=== PATIENT | female | born 1995 | race African-American/Black ===

== ENCOUNTER 2017-02-28 06:56 | Emergency (ER) | payer MEDICAID ==
[~2017-02-28] VITALS: Ht 157.5 cm; Wt 43.1 kg
[2017-02-28 07:25] VITALS: BP 130/85
[2017-02-28 08:00] LABS: Basophils # (auto) 0 uL; Basophils % (auto) 0.3 % (0.0-2.0); Eosinophils # (auto) 0 uL; Hematocrit 39.8 % (36.0-46.0); Hemoglobin 13.2 g/dL (12.2-16.2); Lymphocytes # (auto) 1.4 uL; Lymphocytes % (auto) 14.2 % (10.0-50.0); Mean Corpuscular Hemoglobin 27.7 pg (28.0-32.0); Mean Corpuscular Hgb Conc. 33.2 g/dL (32.0-36.0); Mean Corpuscular Volume 83.3 fL (80.0-100.0); Mean Platelet Volume 8.5 fL (7.4-10.4); Monocytes # (auto) 0.6 uL; Monocytes % (auto) 5.7 % (0.0-12.0); Neutrophils # (auto) 7.8 uL; Neutrophils % (auto) 79.8 % (37.0-80.0); Platelet Count (auto) 297 10^3/uL (140-450); Red Cell Distribution Width 13.5 % (11.6-16.0); White Blood Cell 9.8 10^3/uL (4.4-10.8)
[2017-02-28] MEDS: SODIUM CHLORIDE 0.9% 1,000 ML IVB ONE (08:05)
[2017-02-28] MEDS: PANTOPRAZOLE SODIUM 40 MG/10 ML VIAL IV STA (08:15)
[2017-02-28] MEDS: PROCHLORPERAZINE EDISYLATE 5 MG/ML 2ML VIAL IV ONE (08:15)
[2017-02-28] MEDS: HYDROmorphone HCL 2 MG/ML VL IV ONE (08:15)
[2017-02-28 08:23] LABS: Albumin 4.1 g/dL (3.4-5.0); BUN/Creatinine Ratio 17.9; Bilirubin, Total 0.9 mg/dL (0.2-1.0); Calcium 9.1 mg/dL (8.5-10.1); Potassium 3.1 mmol/L (3.5-5.1); Total Protein 7.8 g/dL (6.4-8.2)
== END 2017-02-28 09:23 | disposition home or self-care (01) ==
LOC: ER 06:56
DX: K29.70 Gastritis, unspecified, without bleeding (principal); F12.10 Cannabis abuse, uncomplicated; F17.210 Nicotine dependence, cigarettes, uncomplicated
CPT/HCPCS: 36415; 80053; 82150; 83690; 84702; 85025; 94761; 96361; 96374; 96375; 99284; C9113; J0780; J1170; J7030; 10120